=== PATIENT | female | born 1950 | race Hispanic/Latino ===

== ENCOUNTER 2019-07-26 18:43 | Emergency (ER) | payer OTHER ==
[2019-07-26] MEDS ORDERED: HYDROCODONE/CHLORPHEN 5 ML/OSYR ONE (19:54)
[2019-07-26] MEDS ORDERED: PEN G BENZ LA 2.4 MU/4 ML SYRINGE IM ONE (19:59)
--- NOTE | 2019-07-26 20:01 | ER ---
Nurse's Notes [facility] Name: Yaneth Sandra Age: 69 yrs Sex: Female : 1950 Arrival Date: 07/26/2019 Time: 18:48 Bed 14 Private MD: Diagnosis: Streptococcal pharyngitis Presentation: 07/26 18:53 Presenting complaint: Patient states: "I have a terrible sore throat that started aj1 today" Patient reports that she has had a tonsillectomy. Reports subjective fever, dizziness. Transition of care: patient was not received from another setting of care. Onset of symptoms was July 26, 2019. Risk Assessment: Do you want to hurt yourself or someone else? Patient reports no desire to harm self or others. Initial Sepsis Screen: Does the patient meet any 2 criteria? HR > 90 bpm. No. Patient's initial sepsis screen is negative. Does the patient have a suspected source of infection? Yes: Other: fever, sore throat. Care prior to arrival: None. 18:53 Method Of Arrival: Ambulatory [facility] 18:53 Acuity: BRYSON 4 aj1 Triage Assessment: 18:57 General: Appears in no apparent distress. comfortable, Behavior is calm, cooperative, aj1 appropriate for age. Pain: Complains of pain in left aspect of posterior pharynx and right aspect of posterior pharynx. EENT: Throat is reddened bilaterally. Neuro: Level of Consciousness is awake, alert, obeys commands. Cardiovascular: Patient's skin is warm and dry. Respiratory: Airway is patent Respiratory effort is even, unlabored, Respiratory pattern is regular, symmetrical. Historical: - Allergies: 18:57 No Known Allergies; aj1 - Home Meds: 18:57 None [Active]; aj1 - PMHx: 18:57 None; aj1 - PSHx: 18:57 Tonsillectomy; ; aj1 - Immunization history:: Flu vaccine is not up to date. - Social history:: Smoking status: Patient/guardian denies using tobacco. - Ebola Screening: : Patient denies travel to an Ebola-affected area in the 21 days before illness onset. Screenin:36 Abuse screen: Denies threats or abuse. Denies injuries from another. Nutritional wh screening: No deficits noted. Tuberculosis screening: No symptoms or risk factors identified. Fall Risk None identified. Assessment: 19:35 General: Appears in no apparent distress. Behavior is calm, cooperative, appropriate wh for age. Pain: Complains of pain in Sore Throat. Neuro: Level of Consciousness is awake, alert, obeys commands, Oriented to person, place, time, situation, Appropriate for age. Cardiovascular: Heart tones S1 S2. Respiratory: Airway is patent Respiratory effort is even, unlabored, Respiratory pattern is regular, symmetrical, Breath sounds are clear bilaterally. GI: Abdomen is flat, non-distended. : No signs and/or symptoms were reported regarding the genitourinary system. EENT: Throat is pink. Derm: Skin is intact, is healthy with good turgor, Skin is pink, warm \\T\\ dry. normal. Musculoskeletal: Circulation, motion, and sensation intact. 20:29 Reassessment: Patient appears in no apparent distress at this time. No changes from previously documented assessment. Patient and/or family updated on plan of care and expected duration. Pain level reassessed. Patient is alert, oriented x 3, equal unlabored respirations, skin warm/dry/pink. Patient states feeling better. Patient states symptoms have improved. Vital Signs: 18:57 BP 143 / 69; Pulse 111; Resp 20; Temp 97.3; Pulse Ox 96% on R/A; Weight 75 kg (R); aj1 Height 5 ft. 3 in. (161 cm) (R); 19:36 BP 118 / 60; Pulse 102; Resp 18; Pulse Ox 97% on R/A; wh 20:29 BP 129 / 64; Pulse 102; Resp 18; Pulse Ox 97% on R/A; wh 18:57 Body Mass Index 28.93 (75.00 kg, 161 cm) aj1 ED Course: 18:48 Patient arrived in ED. as 18:56 Triage completed. aj1 18:57 Arm band placed on Patient placed in an exam room. aj1 19:00 Stanton Moulton is Primary Nurse. wh 19:01 Beatriz Jones FNP-C is PHCP. snw 19:01 Junito Gibson MD is Attending Physician. snw 19:36 Patient has correct armband on for positive identification. Bed in low position. Call light in reach. Side rails up X 1. Pulse ox on. NIBP on. 20:30 No provider procedures requiring assistance completed. Patient did not have IV access during this emergency room visit. Administered Medications: 19:54 Drug: Tussionex Pennkinetic ER 5 ml Route: PO; 20:30 Follow up: Response: No adverse reaction 20:15 Drug: Bicillin L-A 2.4 million units {Note: given half dose in right gluteus.} Route: IM; Site: left gluteus; 20:30 Follow up: Response: No adverse reaction Outcome: 20:00 Discharge ordered by . snw 20:30 Discharged to home ambulatory, with family. 20:30 Condition: stable 20:30 Discharge instructions given to patient, family, Instructed on discharge instructions, follow up and referral plans. POC Strep Throat Demonstrated understanding of instructions, follow-up care, POC 20:33 Patient left the ED. Signatures: Marnie Young RN RN aj1 Beatriz Jones, GROUND WIRER-C GROUND WIRER-Ibis Huffman Winsy
--- NOTE | 2019-07-26 20:01 | EDPHYS ---
Physician Documentation [facility] Name: Yaneth Sandra Age: 69 yrs Sex: Female : 1950 Arrival Date: 07/26/2019 Time: 18:48 Bed 14 Private MD: ED Physician Junito Gibson HPI: 07/26 22:38 This 69 yrs old Female presents to ER via Ambulatory with complaints of Sore snw Throat. 22:38 The patient presents with sore throat. The patient describes throat pain as raw, snw scratchy. Onset: The symptoms/episode began/occurred suddenly, this morning. Severity of symptoms: At their worst the symptoms were moderate. Associated signs and symptoms: Pertinent positives: fever, flu-like symptoms, malaise. The patient has experienced similar episodes in the past. It is unknown whether or not the patient has recently seen a physician. hx of tonsillectomy. Historical: - Allergies: 18:57 No Known Allergies; aj1 - Home Meds: 18:57 None [Active]; aj1 - PMHx: 18:57 None; aj1 - PSHx: 18:57 Tonsillectomy; ; aj1 - Immunization history:: Flu vaccine is not up to date. - Social history:: Smoking status: Patient/guardian denies using tobacco. - Ebola Screening: : Patient denies travel to an Ebola-affected area in the 21 days before illness onset. ROS: 22:39 Constitutional: Negative for fever, chills, and weight loss, Eyes: Negative for injury, snw pain, redness, and discharge, Neck: Negative for injury, pain, and swelling, Cardiovascular: Negative for chest pain, palpitations, and edema, Respiratory: Negative for shortness of breath, cough, wheezing, and pleuritic chest pain, Abdomen/GI: Negative for abdominal pain, nausea, vomiting, diarrhea, and constipation, Back: Negative for injury and pain, : Negative for injury, bleeding, discharge, and swelling, MS/Extremity: Negative for injury and deformity, Skin: Negative for injury, rash, and discoloration. 22:39 ENT: Positive for sore throat. 22:39 Neuro: Positive for lightheadedness. Exam: 22:36 Constitutional: This is a well developed, well nourished patient who is awake, alert, snw and in no acute distress. Head/Face: Normocephalic, atraumatic. Eyes: Pupils equal round and reactive to light, extra-ocular motions intact. Lids and lashes normal. Conjunctiva and sclera are non-icteric and not injected. Cornea within normal limits. Periorbital areas with no swelling, redness, or edema. Neck: Trachea midline, no thyromegaly or masses palpated, and no cervical lymphadenopathy. Supple, full range of motion without nuchal rigidity, or vertebral point tenderness. No Meningismus. Chest/axilla: Normal chest wall appearance and motion. Nontender with no deformity. No lesions are appreciated. 22:36 Respiratory: Lungs have equal breath sounds bilaterally, clear to auscultation and percussion. No rales, rhonchi or wheezes noted. No increased work of breathing, no retractions or nasal flaring. Abdomen/GI: Soft, non-tender, with normal bowel sounds. No distension or tympany. No guarding or rebound. No evidence of tenderness throughout. Back: No spinal tenderness. No costovertebral tenderness. Full range of motion. Skin: Warm, dry with normal turgor. Normal color with no rashes, no lesions, and no evidence of cellulitis. MS/ Extremity: Pulses equal, no cyanosis. Neurovascular intact. Full, normal range of motion. Neuro: Awake and alert, GCS 15, oriented to person, place, time, and situation. Cranial nerves II-XII grossly intact. Motor strength 5/5 in all extremities. Sensory grossly intact. Cerebellar exam normal. Normal gait. Psych: Awake, alert, with orientation to person, place and time. Behavior, mood, and affect are within normal limits. 22:36 ENT: Nose: is normal, Mouth: is normal, Posterior pharynx: erythema, that is moderate, Voice: is normal. 22:36 Cardiovascular: Rate: tachycardic, Rhythm: regular, Heart sounds: normal. Vital Signs: 18:57 BP 143 / 69; Pulse 111; Resp 20; Temp 97.3; Pulse Ox 96% on R/A; Weight 75 kg (R); aj1 Height 5 ft. 3 in. (161 cm) (R); 19:36 BP 118 / 60; Pulse 102; Resp 18; Pulse Ox 97% on R/A; wh 20:29 BP 129 / 64; Pulse 102; Resp 18; Pulse Ox 97% on R/A; wh 18:57 Body Mass Index 28.93 (75.00 kg, 161 cm) aj1 MDM: 19:02 Patient medically screened. snw 22:40 Data reviewed: vital signs, nurses notes. Data interpreted: Pulse oximetry: on room air snw is 97 %. Interpretation: normal. Counseling: I had a detailed discussion with the patient and/or guardian regarding: the historical points, exam findings, and any diagnostic results supporting the discharge/admit diagnosis, lab results, the need for outpatient follow up, to return to the emergency department if symptoms worsen or persist or if there are any questions or concerns that arise at home. Response to treatment: the patient's symptoms have mildly improved after treatment. Special discussion: Based on the history and exam findings, there is no indication for further emergent testing or inpatient evaluation. I discussed with the patient/guardian the need to see the primary care provider for further evaluation of the symptoms. 07/26 19:01 Order name: Flu; Complete Time: 19:51 snw 07/26 19:01 Order name: Strep; Complete Time: 19:51 snw Administered Medications: 19:54 Drug: Tussionex Pennkinetic ER 5 ml Route: PO; 20:30 Follow up: Response: No adverse reaction 20:15 Drug: Bicillin L-A 2.4 million units {Note: given half dose in right gluteus.} Route: wh IM; Site: left gluteus; 20:30 Follow up: Response: No adverse reaction Disposition: 07/27 01:40 Co-signature as Attending Physician, Junito Gibson MD. rn Disposition: 07/26/19 20:00 Discharged to Home. Impression: Streptococcal pharyngitis. - Condition is Stable. - Discharge Instructions: Fever, Adult, Sore Throat, Strep Throat, Rehydration, Adult. - Work release form, Medication Reconciliation Form, Thank You Letter, Antibiotic Education, Prescription Opioid Use form. - Follow up: Emergency Department; When: As needed; Reason: Worsening of condition. Follow up: Private Physician; When: 2 - 3 days; Reason: Recheck today's complaints, Continuance of care, Re-evaluation by your physician. Signatures: Dispatcher [employer] Bry Valenciaa, RN RN aj1 Beatriz Jones, SUPERINTENDENT PIPELINES-C SUPERINTENDENT PIPELINES-Csnw Junito Gibson MD MD rn [place], Winsy Corrections: (The following items were deleted from the chart) 07/26 20:33 20:00 07/26/2019 20:00 Discharged to Home. Impression: Streptococcal pharyngitis. Condition is Stable. Forms are Medication Reconciliation Form, Thank You Letter, Antibiotic Education, Prescription Opioid Use. Follow up: Emergency Department; When: As needed; Reason: Worsening of condition. Follow up: Private Physician; When: 2 - 3 days; Reason: Recheck today's complaints, Continuance of care, Re-evaluation by your physician. snw
[2019-07-26 21:23] VITALS: BP 129/64; O2SAT 97
== END 2019-07-26 20:33 | disposition home or self-care (01) ==
LOC: ER 18:43
DX: J02.0 Streptococcal pharyngitis (principal)
CPT/HCPCS: 87081; 87804 ×2; 96372; 99283; J0561